=== PATIENT | female | born 1980 | race Caucasian/White ===

== ENCOUNTER 2018-11-23 15:32 | Emergency (ER) | payer MEDICAID ==
[2018-11-23] MEDS ORDERED: ONDANSETRON HCL INJ/PF 4 MG/2 ML SDV IV ONE (17:41)
[2018-11-23] MEDS ORDERED: KETOROLAC TROMETHAMINE INJ/PF 30 MG/1 ML SDV IV ONE (17:41)
[2018-11-23] MEDS ORDERED: NORMAL SALINE 1000 ML 1,000 ML IV ONE (17:41)
--- NOTE | 2018-11-23 17:43 | ER Document Report ---
ED Medical Screen (RME) - General Chief Complaint: Abdominal Pain Stated Complaint: ABDOMINAL PAIN Time Seen by Provider: 11/23/18 17:34 Mode of Arrival: Ambulatory Information source: Patient Notes: This is a 38-year-old female with a history of kidney stones that presents to the emergency room with left flank pain radiating into the left groin starting approximately 345 this morning. Patient denies fever, chills. She does have tenderness along the sacrum and the back. Her upper abdomen is soft and nontender. Past surgical history: Cholecystectomy, bilateral tubal ligation, uterine ablation. Patient is currently on her menses. Allergies: Morphine (shortness of breath), Percocet. Patient states she tolerates Vicodin. TRAVEL OUTSIDE OF THE [place] IN LAST 30 DAYS: No - Related Data Allergies/Adverse Reactions: morphine Allergy (Mild, Verified 11/23/18 15:38) acetaminophen [From Percocet] Adverse Reaction (Verified 11/23/18 15:38) oxycodone [From Percocet] Adverse Reaction (Verified 11/23/18 15:38) Past Medical History - Social History Frequency of alcohol use: None Drug Abuse: None Renal/ Medical History: Reports: Hx Kidney Stones. Denies: Hx Peritoneal Dialysis Psychiatric Medical History: Reports: Hx Bipolar Disorder, Hx Depression - with anxiety Past Surgical History: Reports: Hx Cholecystectomy, Hx Genitourinary Surgery - ablation, Hx Tubal Ligation Physical Exam - Vital signs Vitals: Temp Pulse Resp BP Pulse Ox 98.5 F 92 18 105/71 100 11/23/18 16:09 11/23/18 16:09 11/23/18 16:09 11/23/18 16:09 11/23/18 16:09 Course - Vital Signs Vital signs: Temp Pulse Resp BP Pulse Ox 98.5 F 92 18 105/71 100 11/23/18 16:09 11/23/18 16:09 11/23/18 16:09 11/23/18 16:09 11/23/18 16:09
[2018-11-23 18:54] LABS: ALANINE AMINOTRANSFERASE 139 U/L (9-52); ALBUMIN 4.8 g/dL (3.5-5.0); ALKALINE PHOSPHATASE 155 U/L (38-126); ANION GAP 11 (5-19); ASPARTATE AMINO TRANSFERASE 49 U/L (14-36); BILIRUBIN,DIRECT 0.3 mg/dL (0.0-0.4); BILIRUBIN,TOTAL 0.8 mg/dL (0.2-1.3); BLOOD UREA NITROGEN 5 mg/dL (7-20); CALCIUM 9.9 mg/dL (8.4-10.2); CARBON DIOXIDE 21 mmol/L (22-30); CHLORIDE 105 mmol/L (98-107); GLUCOSE 111 mg/dL (75-110); POTASSIUM 4.2 mmol/L (3.6-5.0); SODIUM 137.1 mmol/L (137-145); TOTAL PROTEIN 7.4 g/dL (6.3-8.2)
[2018-11-23 20:12] LABS: APPEARANCE,URINE SLIGHTLY-CLOUDY; BILIRUBIN,URINE NEGATIVE (NEGATIVE); COLOR,URINE YELLOW; GLUCOSE, URINE NEGATIVE (NEGATIVE); KETONES,URINE 80 mg/dL (NEGATIVE); LEUKOCYTE ESTERASE,URINE TRACE (NEGATIVE); NITRITE,URINE NEGATIVE (NEGATIVE); PROTEIN,URINE NEGATIVE (NEGATIVE); URINE SPECIFIC GRAVITY 1.016
[2018-11-23 20:35] LABS: HEMATOCRIT 40.3 % (36.0-47.0); HEMOGLOBIN 13.5 g/dL (12.0-15.5); MEAN CORPUSCULAR HEMOGLOBIN 31.9 pg (27.0-33.4); MEAN CORPUSCULAR HGB CONC 33.6 g/dL (32.0-36.0); MEAN CORPUSCULAR VOLUME 95 fl (80-97); RED BLOOD COUNT 4.24 10^6/uL (3.72-5.28); RED CELL DISTRIBUTION WIDTH 13.2 % (11.5-14.0); WHITE BLOOD COUNT 15.7 10^3/uL (4.0-10.5)
--- NOTE | 2018-11-23 20:45 | ER Document Report ---
ED General - General Chief Complaint: Abdominal Pain Stated Complaint: ABDOMINAL PAIN Time Seen by Provider: 11/23/18 17:34 Mode of Arrival: Ambulatory Information source: Patient, Relative, [facility] Records Notes: 38-year-old female with bipolar disorder, epilepsy, history of kidney stones presents with complaints of left lower quadrant abdominal pain that started over 12 hours prior to arrival. Patient describes the pain as intermittent, stabbing. She denies any exacerbating or relieving factors. She denies any prior similar symptoms. Patient describes the pain is radiating to her left flank but does not think this is a kidney stone as she has had previously. Patient has had nausea secondary to pain without vomiting. Her last bowel movement was this morning. Patient is passing gas. She denies any history of constipation, black or bloody stools, vaginal discharge, concern for STD,fever, chills, chest pain, shortness of breath, dysuria, vomiting. She is currently menstruating. She is not currently sexually active. TRAVEL OUTSIDE OF THE [place] IN LAST 30 DAYS: No - HPI Onset: This morning Onset/Duration: Sudden, Intermittent Quality of pain: Stabbing Severity: Moderate Associated symptoms: Nausea. denies: Chest pain, Diarrhea, Fever, Vomiting, Shortness of breath Exacerbated by: Denies Relieved by: Denies Similar symptoms previously: No Recently seen / treated by doctor: No - Related Data Allergies/Adverse Reactions: morphine Allergy (Mild, Verified 11/23/18 15:38) acetaminophen [From Percocet] Adverse Reaction (Verified 11/23/18 15:38) oxycodone [From Percocet] Adverse Reaction (Verified 11/23/18 15:38) Past Medical History - General Information source: Patient - Social History Smoking Status: Current Every Day Smoker Cigarette use (# per day): Yes - 12 Smoking Education Provided: Yes - Smoking cessation counseling was provided for 4 minutes at the bedside Frequency of alcohol use: None Drug Abuse: None Lives with: Family Family History: Reviewed & Not Pertinent Patient has suicidal ideation: No Patient has homicidal ideation: No Renal/ Medical History: Reports: Hx Kidney Stones. Denies: Hx Peritoneal Di alysis Psychiatric Medical History: Reports: Hx Bipolar Disorder, Hx Depression - with anxiety Past Surgical History: Reports: Hx Cholecystectomy, Hx Genitourinary Surgery - ablation, Hx Tubal Ligation Review of Systems - Review of Systems Notes: REVIEW OF SYSTEMS: CONSTITUTIONAL : Denies fever, chills, or sweats. Denies recent illness. Denies weight loss, recent hospitalizations. EENT: Denies visual changes, eye pain. Denies sore throat, oral lesions, difficulty swallowing. CARDIOVASCULAR: Denies chest pain. Denies palpitations. Denies lower extremity edema. RESPIRATORY: Denies cough. Denies shortness of breath, wheezing. GASTROINTESTINAL: Denies abdominal distention. Denies nausea, vomiting, or diarrhea. Denies blood in vomitus, stools, or per rectum. Denies black, tarry stools. Denies constipation. GENITOURINARY: Denies difficulty urinating, painful urination, frequency, blood in urine, or vaginal discharge. MUSCULOSKELETAL: Denies neck pain or stiffness. Denies joint pain or swelling. SKIN: Denies rash, lesions or sores. HEMATOLOGIC : Denies easy bruising or bleeding. LYMPHATIC: Denies swollen glands. NEUROLOGICAL: Denies confusion or altered mental status. Denies loss of consciousness. Denies dizziness or lightheadedness. Denies headache. Denies weakness or paralysis. Denies problems difficulty with ambulation, slurred spee ch. Denies sensory loss, numbness, or tingling. Denies seizures. PSYCHIATRIC: Denies anxiety or stress. Denies depression, suicidal ideation, or homicidal ideation. Denies visual or auditory hallucinations. Physical Exam - Vital signs Vitals: Temp Pulse Resp BP Pulse Ox 98.5 F 92 18 105/71 100 11/23/18 16:09 11/23/18 16:09 11/23/18 16:09 11/23/18 16:09 11/23/18 16:09 - Notes Notes: PHYSICAL EXAMINATION: GENERAL: Well-appearing, well-nourished and in no acute distress. HEAD: Atraumatic, normocephalic. EYES: Pupils equal round and reactive to light, extraocular movements intact, conjunctiva are normal. ENT: Nares patent, oropharynx clear without exudates. Moist mucous membranes. NECK: Normal range of motion, supple without lymphadenopathy LUNGS: Breath sounds clear to auscultation bilaterally and equal. No wheezes rales or rhonchi. HEART: Regular rate and rhythm without murmurs ABDOMEN: Tenderness with palpation to the left lower inguinal area. No evidence of hernia, mass, lymphadenopathy no erythema. No guarding, no rebound. No mas ses appreciated. Female : deferred Musculoskeletal: Normal range of motion, no pitting or edema. No cyanosis. NEUROLOGICAL: Cranial nerves grossly intact. Normal speech, normal gait. Normal sensory, motor exams PSYCH: Normal mood, normal affect. SKIN: Warm, Dry, normal turgor, no rashes or lesions noted. Course - Re-evaluation Re-evalutation: 11/23/18 23:44 Laboratory 11/23/18 11/23/18 11/23/18 18:15 18:15 18:15 WBC Cancelled RBC Cancelled Hgb Cancelled Hct Cancelled MCV Cancelled MCH Cancelled MCHC Cancelled RDW Cancelled Plt Count Cancelled Total Counted Seg Neutrophils % Cancelled Seg Neuts % (Manual) Lymphocytes % Cancelled Lymphocytes % (Manual) Monocytes % Cancelled Monocytes % (Manual) Eosinophils % Cancelled Eosinophils % (Manual) Basophils % Cancelled Basophils % (Manual) Absolute Neutrophils Cancelled Abs Neuts (Manual) Absolute Lymphocytes Cancelled Abs Lymphs (Manual) Absolute Monocytes Cancelled Abs Monocytes (Manual) Absolute Eosinophils Cancelled Absolute Eos (Manual) Absolute Basophils Cancelled Abs Basophils (Manual) Platelet Estimate Cancelled Clumped Platelets Platelet Comment Sodium 137.1 Potassium 4.2 Chloride 105 Carbon Dioxide 21 L Anion Gap 11 BUN 5 L Creatinine 0.66 Est GFR ( Amer) > 60 Est GFR (Non-Af Amer) > 60 Glucose 111 H Calcium 9.9 Total Bilirubin 0.8 Direct Bilirubin 0.3 Neonat Total Bilirubin Not Reportable Neonat Direct Bilirubin Not Reportable Neonat Indirect Bili Not Reportable AST 49 H ALT 139 H Alkaline Phosphatase 155 H Total Protein 7.4 Albumin 4.8 Lipase 76.0 Urine Color Urine Appearance Urine pH Ur Specific [place] Urine Protein Urine Glucose (UA) Urine Ketones Urine Blood Urine Nitrite Urine Bilirubin Urine Urobilinogen Ur Leukocyte Esterase Urine WBC (Auto) Urine RBC (Auto) Urine Bacteria (Auto) Squamous Epi Cells Auto Urine Mucus (Auto) Urine Ascorbic Acid Urine HCG, Qual Slides for Path Review Cancelled 11/23/18 11/23/18 11/23/18 19:25 19:25 20:00 WBC 15.7 H RBC 4.24 Hgb 13.5 Hct 40.3 MCV 95 MCH 31.9 MCHC 33.6 RDW 13.2 Plt Count 176 Total Counted 100 Seg Neutrophils % Not Reportable Seg Neuts % (Manual) 81 H Lymphocytes % Not Reportable Lymphocytes % (Manual) 10 L Monocytes % Not Reportable Monocytes % (Manual) 9 Eosinophils % Not Reportable Eosinophils % (Manual) 0 Basophils % Not Reportable Basophils % (Manual) 0 Absolute Neutrophils Not Reportable Abs Neuts (Manual) 12.7 H Absolute Lymphocytes Not Reportable Abs Lymphs (Manual) 1.6 Absolute Monocytes Not Reportable Abs Monocytes (Manual) 1.4 Absolute Eosinophils Not Reportable Absolute Eos (Manual) 0.0 Absolute Basophils Not Reportable Abs Basophils (Manual) 0.0 Platelet Estimate Clumped Platelets PRESENT Platelet Comment ADEQUATE Sodium Potassium Chloride Carbon Dioxide Anion Gap BUN Creatinine Est GFR ( Amer) Est GFR (Non-Af Amer) Glucose Calcium Total Bilirubin Direct Bilirubin Neonat Total Bilirubin Neonat Direct Bilirubin Neonat Indirect Bili AST ALT Alkaline Phosphatase Total Protein Albumin Lipase Urine Color YELLOW Urine Appearance SLIGHTLY-CLOUDY Urine pH 7.0 Ur Specific [place] 1.016 Urine Protein NEGATIVE Urine Glucose (UA) NEGATIVE Urine Ketones 80 H Urine Blood MODERATE H Urine Nitrite NEGATIVE Urine Bilirubin NEGATIVE Urine Urobilinogen 4.0 H Ur Leukocyte Esterase TRACE H Urine WBC (Auto) 3 Urine RBC (Auto) 2 Urine Bacteria (Auto) TRACE Squamous Epi Cells Auto 2 Urine Mucus (Auto) FEW Urine Ascorbic Acid NEGATIVE Urine HCG, Qual NEGATIVE Slides for Path Review Acute Abdomen Series 11/23/18 20:44 IMPRESSION: Possible small bowel ileus. copyright 2010 [employer]- All Rights Reserved Transvaginal US 11/23/18 20:44 IMPRESSION: 1.8 cm left ovarian cyst. No follow-up imaging is recommended. Temp Pulse Resp BP Pulse Ox 98.8 F 84 20 110/69 98 11/23/18 23:39 11/23/18 23:39 11/23/18 23:39 11/23/18 23:39 11/23/18 23:39 38-year-old female presents with complaints of left lower quadrant abdominal pain that started this morning. Patient describes it as sharp, intermittent and associated with nausea but no vomiting. Patient has had normal bowel movements, is passing gas. Previous surgical history of cholecystectomy. Vital signs reviewed and within normal limits. Patient does not appear toxic or dehydrated. She is in no acute distress. Acute abdominal series was obtained and read possible small bowel ileus but patient again is having bowel movements and is without abdominal distention or vomiting. Transvaginal ultrasound was performed and did show a 1.8 cm left ovarian cysts without evidence of torsion. Patient does have a leukocytosis of 15. CMP unremarkable except for mildly elevated liver enzymes which were discussed with the patient. Lipase within normal limits. Urinalysis shows blood but patient is currently menstruating. Patient did receive IV fluids, Toradol, Zofran and reports significant improvement in her pain. Patient will be discharged home with prescription for Naprosyn and Zofran. Patient advised that she should be seen by her primary care physician in 2-3 weeks for repeat LFTs. Advised to maintain a clear liquid diet for the next 24 hours and return in 12-24 hours if still experiencing significant pain. Patient was evaluated and treated as appropriate for the patient's presenting symptoms and complaint, with consideration of any critical or life threatening conditions that may be associated with their obtained history and exam as noted above. All results were discussed with patient and her mother who is at the bedside. Patient provided the opportunity to ask questions, and express concerns. Patient was educated on treatments based on their presumed diagnosis as noted above. At this time we will discharge the patient with return precautions and follow-up recommendations. Verbal discharge instructions given a the bedside. Medication warnings reviewed. Patient is in agreement with this plan and has verbalized understanding of return precautions. After careful consideration I feel that that patient can be safely discharged from the emergency department, they were advised to followup with a primary care physician in 2-3 days. Dictation on this chart was performed using voice recognition software and may result in unintended grammatical, spelling, syntax or errors. - Vital Signs Vital signs: Temp Pulse Resp BP Pulse Ox 98.8 F 84 20 110/69 98 11/23/18 23:39 11/23/18 23:39 11/23/18 23:39 11/23/18 23:39 11/23/18 23:39 - Laboratory Result Diagrams: 11/23/18 20:00 11/23/18 18:15 Laboratory results interpreted by me: 11/23/18 11/23/18 11/23/18 18:15 19:25 20:00 WBC 15.7 H Seg Neuts % (Manual) 81 H Lymphocytes % (Manual) 10 L Abs Neuts (Manual) 12.7 H Carbon Dioxide 21 L BUN 5 L Glucose 111 H AST 49 H ALT 139 H Alkaline Phosphatase 155 H Urine Ketones 80 H Urine Blood MODERATE H Urine Urobilinogen 4.0 H Ur Leukocyte Esterase TRACE H - Diagnostic Test Radiology reviewed: Image reviewed, Reports reviewed Discharge - Discharge Clinical Impression: Left lower quadrant abdominal pain, Left ovarian cyst, Elevated liver enzymes Leukocytosis Qualifiers: Leukocytosis type: unspecified Qualified Code(s): D72.829 - Elevated white blood cell count, unspecified Condition: Good Disposition: HOME, SELF-CARE Instructions: Abdominal Pain ([facility]), Liver Function Abnormality ([facility]), Ovarian Cyst ([facility]) Additional Instructions: Your ultrasound showed a left ovarian cyst which could be the cause of your left lower quadrant abdominal pain. Your labs did show a mild elevation in your liver enzymes. Please follow-up with your primary care physician in 2-3 weeks for repeat lab work. Please return to the emergency in 12-24 hours if you are still experiencing abdominal pain. Follow up with your -59 hours for further care or return to the ED IMMEDIATELY if symptoms worsen or you have any concerns. If you cannot afford to follow up with your primary care physician a list of low cost clinics have been provided at the end of your discharge papers as well. Most prescribed medications have multiple side effects. The safest thing to do is when filling your prescription speak to your pharmacist regarding possible interactions with your normal home medications and over the counter medications such as Ibuprofen, Tylenol, Benadryl. If you experience any symptoms that cause you discomfort or concern you should discontinue the medication immediately and return to the emergency room or call your primary care physician. Prescriptions: Naproxen 500 mg PO Q12H PRN #14 tablet PRN Reason: Abdominal Cramping Forms: Return to Work
[2018-11-23 21:20] LABS: PLATELET COUNT 176 10^3/uL (150-450)
[2018-11-23 21:21] LABS: ABSOLUTE LYMPHOCYTES# (MANUAL) 1.6 10^3/uL (0.5-4.7); ABSOLUTE MONOCYTES # (MANUAL) 1.4 10^3/uL (0.1-1.4); ABSOLUTE NEUTROPHILS# (MANUAL) 12.7 10^3/uL (1.7-8.2); BASOPHILS % (MANUAL) 0 % (0-2); EOSINOPHILS % (MANUAL) 0 % (0-6); LYMPHOCYTES % (MANUAL) 10 % (13-45); MONOCYTES % (MANUAL) 9 % (3-13); PLATELET CLUMPS PRESENT; PLATELET COMMENT ADEQUATE; SEGMENTED NEUTROPHILS % (MAN) 81 % (42-78); TOTAL CELLS COUNTED 100
--- NOTE | 2018-11-23 21:57 | RADIOLOGY REPORT (SQ) ---
EXAM DESCRIPTION: XR ABDOMEN SUPINE AND ERECT WITH CHEST (ABD ACUTE SERIES) COMPLETED DATE/TME: 11/23/2018 20:44 CLINICAL HISTORY: 38 years, Female, LLQ pain COMPARISON: None. NUMBER OF VIEWS: TECHNIQUE: LIMITATIONS: None. FINDINGS: There are multiple loops of normal caliber, but gas containing small bowel, possibly an ileus. No free air. There are no abnormal calcifications. The chest is unremarkable. IMPRESSION: Possible small bowel ileus. copyright 2010 [employer]- All Rights Reserved
--- NOTE | 2018-11-23 23:04 | RADIOLOGY REPORT (SQ) ---
US PELVIS EXAM DATE: 11/23/2018 20:44 HISTORY: Left lower quadrant pain. COMPARISON: None. TECHNIQUE: Grayscale, color Doppler, and spectral Doppler ultrasound images of the pelvis were obtained. FINDINGS: The uterus is anteverted and measures 8.4 x 5.0 x 4.2 cm. The endometrium measures 1.1 cm. The cervix measures 3 cm in length. The right ovary measures 3.7 x 1.2 x 1.2 cm and the left ovary measures 3.0 x 1.6 x 1.6 cm. There is a 1.8 x 1.8 x 1.3 cm left ovarian cyst. No pelvic free fluid is identified. IMPRESSION: 1.8 cm left ovarian cyst. No follow-up imaging is recommended.
[2018-11-23] MEDS ORDERED: ONDANSETRON ODT 4 MG TAB (6 TAB/ER DISP) PO PRN (23:29)
[2018-11-23 23:40] VITALS: BP 110/69
== END 2018-11-23 23:43 | disposition home or self-care (01) ==
LOC: ER 15:32
DX: N83.202 Unspecified ovarian cyst, left side (principal); R10.32 Left lower quadrant pain; R11.0 Nausea; D72.829 Elevated white blood cell count, unspecified; R74.8 Abnormal levels of other serum enzymes; F17.210 Nicotine dependence, cigarettes, uncomplicated; Z71.6 Tobacco abuse counseling; Z88.5 Allergy status to narcotic agent; Z87.442 Personal history of urinary calculi; Z90.49 Acquired absence of other specified parts of digestive tract; Z98.51 Tubal ligation status
CPT/HCPCS: 99406; 99284; 96374; 96375; 36415; 83690; 85025; 81025; 80053; 81001; 74022; 76830; 93976; J1885; J2405; J7030

== ENCOUNTER 2020-04-06 15:04 | Emergency (ER) | payer SELFPAY ==
[2020-04-06] MEDS ORDERED: HYDROMORPHONE HCL INJ/PF 2 MG/ML AMPULE INJ ONE (15:39)
[2020-04-06] MEDS ORDERED: METOCLOPRAMIDE HCL 10 MG TABLET PO ONE (15:40)
--- NOTE | 2020-04-06 15:50 | ER Document Report ---
ED General - General Chief Complaint: Lower Abdominal Pain Stated Complaint: LOWER ABDOMINAL PAIN Time Seen by Provider: 04/06/20 15:29 Primary Care Provider: SULEMA PAULINO FNP-C [Primary Care Provider] - Follow up as needed Notes: 39-year-old female with a history of endometriosis and hyperplasia status post ablation in [place] with recurrent discharge menorrhea metromenorrhagia presents with left lower quadrant dental pain and worsening generalized renny cramping for about 4 days. No bleeding. Her periods become irregular lately. Not sexually active no discharge no fever no upper abdominal pain no diarrhea no vomiting. Took ibuprofen normally takes it but is not working anymore. Has allergies to several narcotics. TRAVEL OUTSIDE OF THE [place] IN LAST 30 DAYS: No - Related Data Allergies/Adverse Reactions: morphine Allergy (Mild, Verified 11/23/18 15:38) acetaminophen [From Percocet] Adverse Reaction (Verified 11/23/18 15:38) oxycodone [From Percocet] Adverse Reaction (Verified 11/23/18 15:38) Past Medical History - General Information source: Patient - Social History Smoking Status: Never Smoker Cigarette use (# per day): Yes Smoking Education Provided: Yes - The patient ED visit today was directly related to their abuse of tobacco. Family History: Reviewed & Not Pertinent Renal/ Medical History: Reports: Hx Kidney Stones. Denies: Hx Peritoneal Dialysis Psychiatric Medical History: Reports: Hx Bipolar Disorder, Hx Depression - with anxiety Past Surgical History: Reports: Hx Cholecystectomy, Hx Genitourinary Surgery - ablation, Hx Tubal Ligation Review of Systems - Review of Systems Notes: REVIEW OF SYSTEMS GEN: Denies fever, chills, weight loss ENT: Denies sore throat, nasal discharge, ear pain EYES: Denies blurry vision, eye pain, discharge CV: Denies chest pain, palpitations, edema RESP: Denies cough, shortness of breath, wheezing GI: HPI MSK: Denies joint pain/swelling, edema, SKIN: Denies rash, skin lesions LYMPH: Denies swollen glands/lymph nodes NEURO: Denies headache, focal weakness or numbness, dizziness PSYCH: Denies depression, suicidal or homicidal ideation PHYSICAL EXAMINATION General: No acute distress, well-nourished Head: Atraumatic, normocephalic ENT: Mouth normal, oropharynx moist, no exudates or tonsillar enlargement Eyes: Conjunctiva normal, pupils equal, lids normal Neck: No JVD, supple, no guarding CVS: Normal rate, regular rhythm, no murmurs Resp: No resp distress, equal and normal breath sounds bilaterally GI: Nondistended, soft, no tenderness to palpation, no rebound or guarding Ext: No deformities, no edema, normal range of motion in upper and lower ext Back: No CVA or midline TTP Skin: No rash, warm Lymphatic: No lymphadeopathy noted Neuro: Awake, alert. Face symmetric. GCS 15. Physical Exam - Vital signs Vitals: Temp Pulse Resp BP Pulse Ox 98.3 F 85 18 138/85 H 100 04/06/20 15:09 04/06/20 15:09 04/06/20 15:09 04/06/20 15:09 04/06/20 15:09 Course - Re-evaluation Re-evalutation: 04/06/20 15:49 Nontender recurrent abdominal pain in a patient with known gynecologic pathology and unlikely to be No risk factors for STD No right-sided tenderness or pain doubt appendectomy doubt need for labs IM Dilaudid, p.o. Reglan, test and UA 04/06/20 15:49 Although ovarian cyst is a possibility management would not change based on ultrasound so does not need pelvic ultrasound today 04/06/20 18:12 UA contaminated not . Pain better with meds. Stable for discharge follow-up with [facility]. I have discussed with the patient there likely diagnosis, aftercare plan, follow-up plans and my usual and customary return precautions. They verbalized understanding of this. - Vital Signs Vital signs: Temp Pulse Resp BP Pulse Ox 98.3 F 80 16 128/80 H 100 04/06/20 16:15 04/06/20 16:15 04/06/20 16:15 04/06/20 16:15 04/06/20 16:15 - Laboratory Laboratory results interpreted by me: 04/06/20 15:35 Urine Blood SMALL H Ur Leukocyte Esterase MODERATE H Discharge - Discharge Clinical Impression: Pelvic pain Condition: Good Disposition: HOME, SELF-CARE Instructions: Pelvic Pain ([facility]) Additional Instructions: [facility] Prescriptions: Naproxen 500 mg PO BIDP PRN #60 tablet PRN Reason: Forms: Return to Work Referrals: SULEMA PAULINO, SCHEDULING SPECIALIST-C [Primary Care Provider] - Follow up as needed
[2020-04-06 15:58] LABS: APPEARANCE,URINE CLOUDY; BILIRUBIN,URINE NEGATIVE (NEGATIVE); COLOR,URINE YELLOW; GLUCOSE, URINE NEGATIVE (NEGATIVE); KETONES,URINE NEGATIVE (NEGATIVE); LEUKOCYTE ESTERASE,URINE MODERATE (NEGATIVE); NITRITE,URINE NEGATIVE (NEGATIVE); PROTEIN,URINE NEGATIVE (NEGATIVE); UROBILINOGEN,URINE NEGATIVE mg/dL (<2.0)
[2020-04-06 16:46] VITALS: BP 128/80
== END 2020-04-06 16:18 | disposition home or self-care (01) ==
LOC: ER 15:04
DX: R10.2 Pelvic and perineal pain (principal); R10.30 Lower abdominal pain, unspecified; F17.210 Nicotine dependence, cigarettes, uncomplicated; Z88.6 Allergy status to analgesic agent
CPT/HCPCS: 99283; 81025; 81001; J1170